=== PATIENT | male | born 1980 | race African-American/Black ===

== ENCOUNTER → 2017-07-07 | Outpatient (CLI) | payer OTHER ==
[~2017-07-07] MED LIST: AZITHROMYCIN 2250 MG PO; ZOFRAN ODT4 MG PO
== END ==
LOC: CAT 08:11
DX: Z13.6 Encounter for screening for cardiovascular disorders (principal)

== ENCOUNTER 2019-04-15 15:35 | Emergency (ER) | payer OTHER ==
[~2019-04-15] VITALS: Ht 182.9 cm; Wt 167.8 kg
[2019-04-15 17:20] LABS: ABSOLUTE NEUTROPHILS 3.2 thou/uL (1.4-8.2); BASOPHILS 1.1 % (0.0-2.0); EOSINOPHILS 1.5 % (0.0-3.0); HEMATOCRIT 37.3 % (42.0-52.0); HEMOGLOBIN 12.4 gm/dL (14.0-18.0); LYMPHOCYTES 36.7 % (24.0-44.0); MCH 26.7 pg (26.0-34.0); MCHC 33.4 g/dL (28.0-37.0); MCV 80.2 fL (80.0-100.0); MONOCYTES 8.3 % (1.0-8.0); PLATELET COUNT 301 thou/uL (150-400); POLYS 52.4 % (36.0-66.0); RBC 4.65 mil/uL (4.50-6.00); RDW 15.4 % (10.5-14.5)
[2019-04-15 17:28] LABS: ANION GAP 8 mmol/L (7-16); BUN 16 mg/dL (7-18); CALCIUM 8.6 mg/dL (8.5-10.1); CHLORIDE 106 mmol/L (98-107); CO2 26 mmol/L (21-32); CREATININE 0.9 mg/dL (0.7-1.3); GLUCOSE 94 mg/dL (74-106); POTASSIUM 3.7 mmol/L (3.5-5.1); SODIUM 140 mmol/L (136-145)
[2019-04-15 17:38] LABS: ALBUMIN 3.5 g/dL (3.4-5.0); SGOT 21 U/L (15-37); SGPT 56 U/L (30-65); TOTAL BILIRUBIN 0.2 mg/dL (<0.1-1.0); TOTAL PROTEIN 7.2 g/dL (6.4-8.2); TROPONIN-I <0.06 ng/mL (<0.06)
[2019-04-15] MEDS ORDERED: CEPACOL SORE T1 EAC7 PO (17:55)
[2019-04-15] MEDS ORDERED: PROAIR HFA8.5 GM INH (17:56)
[2019-04-15] MEDS ORDERED: NAPROSYN500 MG PO (17:56)
[2019-04-15 17:57] VITALS: BP 151/74
--- NOTE | 2019-04-16 09:11 | EKG ---
[place] [address] [facility] [place] [address] ELECTROCARDIOGRAM REPORT Name: DONALD TREJO Room #: DEP [facility] CENTERDonald#: [id number] ������������������ Admission: 04/15/19 ������������������ Attend Phys: Discharge: 04/15/19 ������������������ Date of : 84 Report #: [id number] ����������������������������������������������������������������� [id number] THIS REPORT FOR: //name// [facility] ED Test Date: 2019-04-15 Test Time: 15:49:48 Pat Name: DONALD TREJO Department: Room: Gender: [employer]: TSTORCK : 1980 Requested By: Nagi Andrade Order Number: [id number] MD: Andrew Mckee Measurements Intervals Fine Rate: 71 P: 29 NE: 156 QRS: 16 QRSD: 94 T: 3 QT: 396 QTc: 431 Interpretive Statements Sinus rhythm Normal tracing No previous ECG available for comparison Electronically Signed On 04-16-2019 9:11:13 CDT by Andrew Mckee [email or web address] ��������������������������������������������� <ELECTRONICALLY SIGNED> ���������������������������������������� By: Andrew Mckee MD, [facility] ��������������������������������������������� 04/16/19 0911 1549 1549 Andrew Mckee MD, FACC /EPI
== END 2019-04-15 17:57 | disposition home or self-care (01) ==
LOC: ER 15:35
PROVIDERS: Emergency Medicine
DX: R07.89 Other chest pain (principal)

== ENCOUNTER 2021-08-14 08:38 | Emergency (ER) | payer OTHER ==
[~2021-08-14] VITALS: Ht 182.9 cm; Wt 104.3 kg
[~2021-08-14 08:38] MED LIST changes: +CEPACOL SORE T1 EAC7 PO; +NAPROSYN500 MG PO; +PROAIR HFA8.5 GM INH
[2021-08-14] MEDS ORDERED: IBUPROFEN 800800 MG PO (10:39)
[2021-08-14] MEDS ORDERED: FLEXERIL PO (10:39)
[2021-08-14 10:48] VITALS: BP 130/87
== END 2021-08-14 10:49 | disposition home or self-care (01) ==
LOC: ER 08:38
DX: S16.1XXA Strain of muscle, fascia and tendon at neck level, initial encounter (principal); S39.012A Strain of muscle, fascia and tendon of lower back, initial encounter; S09.90XA Unspecified injury of head, initial encounter; V43.52XA Car driver injured in collision with other type car in traffic accident, initial encounter; Y93.19 Activity, other involving water and watercraft; Y92.89 Other specified places as the place of occurrence of the external cause; Y99.8 Other external cause status